=== PATIENT | male | born 1945 | race Caucasian/White ===

== ENCOUNTER 2017-12-20 16:40 | Emergency (ER) | payer OTHER ==
[~2017-12-20] VITALS: Ht 182.9 cm; Wt 134.3 kg
[~2017-12-20 16:40] MED LIST: ARTIFICIAL TEAR15 M1 OPHTHALMIC; ASPIRIN81 M2 PO; BACTRIM DS TAB1 EACH PO; BUMETANIDE 1 MG1 M1 PO; BUMEX2 MG PO; CARRAKLENZ DER473 ML TOP; CARVEDILOL12.5 MG PO; CARVEDILOL6.25 MG PO; COLACE100 MG PO; COUMADIN 5 MG TA5 M1 PO; EXPECTORANT200 M1 PO; FISH OIL 1,001000 M2 PO; FLONASE 0.05%50 MCG NASAL; FLUNISOLIDE NASAL; GLUCOPHAGE1000 MG PO; JANTOVEN7.5 MG PO; KETOCONAZOLE60 GM TOP; LASIX 40 MG TAB40 M1 PO; LEVEMIR SUBQ; LISINOPRIL5 MG PO; METFORMIN HCL500 MG PO; MIRALAX255 GM PO; NA; NAPROSYN250 MG PO; NITROGLYCERIN0.4 MG SUBLING; NOVOLOG100 UNIT/1 SUBQ; PLAVIX 75 MG TA75 M1 PO; POTASSIUM20 PO; PRAVACHOL40 MG PO; PRED FORTE 1% EY5 M1 OPHTHALMIC; RANOLAZINE PO; SALSALATE 750750 MG PO; TRAMADOL 50 MG50 MG PO; VALIUM2 MG PO; VOLTAREN 0.1% EY5 M1 OPHTHALMIC; XARELTO10 MG; XARELTO20 MG PO
[2017-12-20 18:13] LABS: HEMATOCRIT 40.6 % (42.0-52.0); HEMOGLOBIN 14.1 gm/dL (14.0-18.0); MCH 29.5 pg (26.0-34.0); MCHC 34.6 g/dL (28.0-37.0); MCV 85.2 fL (80.0-100.0); RBC 4.77 mil/uL (4.50-6.00); RDW 16.5 % (10.5-14.5); WBC 9.7 thou/uL (4.0-11.0)
[2017-12-20 18:20] LABS: CALCIUM 9.3 mg/dL (8.5-10.1); POTASSIUM 3.4 mmol/L (3.5-5.1)
== END 2017-12-20 19:42 | disposition home or self-care (01) ==
LOC: ER 16:40
PROVIDERS: Emergency Medicine
DX: K60.3 Anal fistula (principal); E11.9 Type 2 diabetes mellitus without complications; E78.5 Hyperlipidemia, unspecified; I50.9 Heart failure, unspecified; I48.91 Unspecified atrial fibrillation; Z95.5 Presence of coronary angioplasty implant and graft; Z79.4 Long term (current) use of insulin; Z88.0 Allergy status to penicillin

== ENCOUNTER 2020-10-16 09:35 | Inpatient (IN) | payer OTHER ==
[~2020-10-16] VITALS: Ht 182.9 cm; Wt 113.5 kg
[2020-10-16 09:39] VITALS: BP 94/51
--- NOTE | 2020-10-16 09:57 | NUR ---
REVIEWED TRIAGE NOTE. PT STATE HE IS NOT HAVING DIARRHEA. WHEN ASKED WHAT BROUGHT PT TO THE ED TODAY PT STATES "I AM HERE BECAUSE I CANNOT SLEEP" PT ASKED IF HE IS HAVING DIARRHEA PT STATES "NO I WISH I WAS" PT ASKED WHY HE CANNOT SLEEP PT STATES "I AM UP MULTIPLE TIMES A NIGHT GOING TO THE BATHROOM" PT YET AGAIN DENIES DIARRHEA. PT THEN STATES "I THINK I TORE MY ANUS" THIS RN ASKED WHY AND IF HE WAS HAVING BLEEDING FROM HIS RECTUM. PT STATES "NO I AM NOT AND LIGIA BECAUSE IT HURTS"
[2020-10-16 10:23] LABS: ABSOLUTE NEUTROPHILS 6.2 thou/uL (1.4-8.2); BASOPHILS 0.8 % (0.0-2.0); EOSINOPHILS 0.5 % (0.0-3.0); HEMOGLOBIN 14.8 gm/dL (14.0-18.0); LYMPHOCYTES 21.2 % (24.0-44.0); MCH 29.2 pg (26.0-34.0); MCHC 33.6 g/dL (28.0-37.0); MCV 86.9 fL (80.0-100.0); MONOCYTES 8.3 % (1.0-8.0); PLATELET COUNT 183 thou/uL (150-400); POLYS 69.2 % (36.0-66.0); RBC 5.06 mil/uL (4.50-6.00); RDW 16.7 % (10.5-14.5); WBC 8.9 thou/uL (4.0-11.0)
[2020-10-16 10:27] LABS: CALCIUM 9.5 mg/dL (8.5-10.1); CREATININE 1.1 mg/dL (0.7-1.3)
[2020-10-16 10:29] LABS: POTASSIUM 2.9 mmol/L (3.5-5.1)
[2020-10-16 10:40] LABS: ALBUMIN 3.5 g/dL (3.4-5.0); MAGNESIUM 2.1 mg/dL (1.8-2.4); TOTAL BILIRUBIN 2.9 mg/dL (0.2-1.0); TOTAL PROTEIN 8.1 g/dL (6.4-8.2)
--- NOTE | 2020-10-16 10:41 | NUR ---
PT NOTES HE HAS CHRONIC LOW POTASSIUM. PT STATES HE IS SUPPOSED TO BE TAKING ORAL LIQUID POTASSIUM BUT HE HAS NOT TAKEN IT IN SEVERAL DAYS
[2020-10-16 15:35] VITALS: BP 116/68
--- NOTE | 2020-10-16 15:42 | NUR ---
ATTEMPTED TO CALL REPORT AT THIS TIME. RN AT BEDSIDE WITH ANOTHER PT. RN TO CALL THIS RN BACK
[2020-10-16 15:48] LABS: URINE BILIRUBIN NEGATIVE (Negative); URINE BLOOD 2+ (Negative); URINE CLARITY CLOUDY; URINE COLOR YELLOW; URINE GLUCOSE-RANDOM* 3+ (Negative); URINE KETONES NEGATIVE (Negative); URINE NITRITE-REFLEX NEGATIVE (Negative); URINE PROTEIN (DIPSTICK) NEGATIVE (Negative); URINE UROBILINOGEN 0.2 E.U./dl (0.2-1.0)
[2020-10-16 15:51] LABS: URINE LEUKOCYTES-REFLEX 1+ (Negative)
[2020-10-16 16:00] LABS: AMORPHOUS URATES Few /LPF (None Seen); CASTS None Seen /LPF (None Seen); SQUAMOUS None Seen /LPF (0-3); URINE RBC 3-10 Few /HPF (NONE SEEN); URINE WBC-REFLEX >25 Many /HPF (0-5)
--- NOTE | 2020-10-16 16:10 | NUR ---
SECOND ATTEMPT FOR REPORT, RN UNABLE. TEXTILE SCREEN MAKER STATES SHE WILL LET RN KNOW THAT THIS IS THE ED'S SECOND ATTEMPT REPORT
[2020-10-16 16:15] VITALS: BP 116/68
--- NOTE | 2020-10-16 16:15 | NUR ---
PT WAS SENT TO THE FLOOR AT THIS TIME WITH [facility], ALL BELONGINGS AND MEDICATIONS SENT WITH PT. FULL HANDBAR PRINTED AND WITH PT
--- NOTE | 2020-10-16 16:26 | NUR ---
75-year-old male with history known for CAD status post cardiac stent/CABG, CHF, diabetes, hypertension, hyperlipidemia, history of A. fib.: Presents to the ED with complaint of reported diarrhea for the last 2 days. Patient reports more than 20 (soft/liquid and ) bowel movements over the last 24 hours. Per ED record ID Now as Negative and vaccinated with Moderna. The patient arrived via the ED with his children and in his wheelchair. ED notes that patient is A&O x4. Per GI patient has been admitted for Constipation with possible fecal obstruction and critically low potassium. Per Internal Medicine patient also has lactic acidosis with uncontrolled DM, hyponatremia, HTN, CHF, A-fib (On Xarelto) and listed as a full code. Son Shankar Cloud is listed as the next of kin at [phone] and yet when called was informed: "he no longer has this number". Alerted HS who was on the unit as patient was being admitted to note in admission assessment. Notably the ED reports the patient as A&O x4. As the MD plans of treatment and then therapy evaluations evolve, CM will continue to follow for any discharge needs.
[2020-10-16 19:19] VITALS: BP 107/58
[2020-10-16 19:20] VITALS: BP 107/58
[2020-10-16 23:34] VITALS: BP 110/70
[2020-10-17 03:33] LABS: ABSOLUTE NEUTROPHILS 5.1 thou/uL (1.4-8.2); BASOPHILS 0.8 % (0.0-2.0); HEMATOCRIT 38.1 % (42.0-52.0); LYMPHOCYTES 22.9 % (24.0-44.0); MCH 29.1 pg (26.0-34.0); MCHC 33.3 g/dL (28.0-37.0); MCV 87.5 fL (80.0-100.0); MONOCYTES 9.1 % (1.0-8.0); PLATELET COUNT 151 thou/uL (150-400); POLYS 66.2 % (36.0-66.0); RBC 4.35 mil/uL (4.50-6.00); WBC 7.7 thou/uL (4.0-11.0)
[2020-10-17 03:37] LABS: HEMOGLOBIN 12.7 gm/dL (14.0-18.0)
[2020-10-17 03:55] LABS: CALCIUM 8.7 mg/dL (8.5-10.1); CREATININE 0.9 mg/dL (0.7-1.3); MAGNESIUM 2.1 mg/dL (1.8-2.4); POTASSIUM 3.7 mmol/L (3.5-5.1)
[2020-10-17 03:57] VITALS: BP 106/72
[2020-10-17 07:26] VITALS: BP 106/68
--- NOTE | 2020-10-17 08:45 | NUR ---
Nursing lists no DPOA but the as next of kin Emilee Cloud at [phone] when called was given a number no longer in use. Also the assessment lists the correct phone number of the son Shankar Cloud at [phone] however when called to this number the caller stated that this too was a wrong number. Attempted to call the household of the patient's home number of [phone] and it too has a recording the number is unavailable. Assessment from nursing also states patient is up with moderate assist and his walker. Noted that on 10-17-20 PT/OT orders have been placed. CM to continue tor follow for discharge needs.
[2020-10-17 10:06] LABS: DIRECT BILIRUBIN 0.7 mg/dL (<0.1-0.2); TOTAL BILIRUBIN 1.6 mg/dL (0.2-1.0); TOTAL PROTEIN 6.4 g/dL (6.4-8.2)
[2020-10-17 12:59] VITALS: BP 93/60
--- NOTE | 2020-10-17 16:59 | NUR ---
met with patient who admits with hyperkalemia. Patient resides in independent apt alone. Ground floor apt. He has a scooter/walker. Walker in apt and scooter in community. He has [facility] in home. He uses bus transport for grocery shopping. Patient reports no hx of rehab stay. therapy evals in process. Gave patient skilled list to review. [facility] eval requested. Ariel Cloud [phone]. Case mgt following.
[2020-10-17 17:03] VITALS: BP 90/64
[2020-10-17 19:53] VITALS: BP 103/67
[2020-10-18 04:45] VITALS: BP 106/60
[2020-10-18 07:28] VITALS: BP 94/47
[2020-10-18 11:19] VITALS: BP 103/75
[2020-10-18] MEDS ORDERED: FLOMAX0.4 MG PO (12:34)
--- NOTE | 2020-10-18 14:21 | NUR ---
ON-GOING ASSESSMENT: CM REVIEWED CHART. PT WORKED WITH THERAPY TODAY AND RECOMMENDATION IS FOR ACUTE REHAB. [facility] CAN ACCEPT PATIENT. PT WAS STATING HE WANTED TO GO HOME BUT AFTER WORKING WITH THERAPY HE IS AGREEABLE TO GOING TO [facility]. CM NOTIFIED PATIENTS SON CARY WHO IS ALSO AGREEABLE WITH THE DISCHARGE PLAN. ANOTHER RAPID COVID TEST WILL NEED TO BE COMPLETED THE PREVIOUS COVID TEST IS OVER 48 HRS. CM NOTIFIED BEDSIDE RN. PLANS FOR DISCHARGE TO [facility] THIS AFTERNOON.
[2020-10-18 16:10] VITALS: BP 102/71
--- NOTE | 2020-10-18 16:27 | NUR ---
ASSESSMENT CHARTED - MEDS PER MAR - NO CO'S OF PAIN OR NASUEA. ROCAEL DIET AND FLUIDS. ACCUCHECKS CHARTED - COVERED BY SSI. PT UP TO THE CHAIR WITH PHYS THERAPY - THERAPY STATAING HE NEEDED TOO MUCH ASSISTANCE TO BE ABLE TO GO HOME SAFELY AND THE HE NEEDED TO GO TO REHAB - PT AGREED TO GO AFTER HE HAD STATED THAT HE WOULD NOT. XRAY OF ABDO COMPLETED. PT USING URINAL TO VOID - DOES MISS THE URINAL AT TIMES. LOWER LEGS DRY AND CRINKLY. PT TRANSFERED TO REHAB WITH [facility]. REPORT CALLED TO BRIE- TO REHAB VIA CHAIR. NO CO'S AT TIME OF D/C.
[2020-10-18 23:06] LABS: GLYCOHEMOGLOBIN (HGB A1C) 7.4 % (4.8-5.6)
== END 2020-10-18 16:30 | DRG 392 ==
LOC: ER 09:35 → EROBS 12:37 → 2N 12:37
PROVIDERS: Emergency Medicine; Nurse Practitioner; Nurse Practitioner Family; ADMIT Internal Medicine; ATTEND Internal Medicine
DX: K59.00 Constipation, unspecified (principal); E87.1 Hypo-osmolality and hyponatremia; E87.2 Acidosis; E87.6 Hypokalemia; I50.9 Heart failure, unspecified; Z20.822 Contact with and (suspected) exposure to COVID-19; E78.5 Hyperlipidemia, unspecified; E80.6 Other disorders of bilirubin metabolism; I48.91 Unspecified atrial fibrillation; I25.10 Atherosclerotic heart disease of native coronary artery without angina pectoris; I71.4 Abdominal aortic aneurysm, without rupture; Z60.2 Problems related to living alone; R53.81 Other malaise; E66.9 Obesity, unspecified; R33.9 Retention of urine, unspecified; E86.0 Dehydration; E11.65 Type 2 diabetes mellitus with hyperglycemia; I11.0 Hypertensive heart disease with heart failure; Z95.5 Presence of coronary angioplasty implant and graft; Z88.0 Allergy status to penicillin; Z95.1 Presence of aortocoronary bypass graft; Z87.891 Personal history of nicotine dependence; Z86.010 Personal history of colon polyps; Z98.49 Cataract extraction status, unspecified eye; Z68.33 Body mass index [BMI] 33.0-33.9, adult; Z79.82 Long term (current) use of aspirin; Z79.899 Other long term (current) drug therapy
CPT/HCPCS: 10081

== ENCOUNTER 2020-10-18 15:39 | Inpatient (IN) | payer OTHER ==
[~2020-10-18] VITALS: Ht 182.9 cm; Wt 122.1 kg
[~2020-10-18 15:39] MED LIST changes: +FLOMAX0.4 MG PO
--- NOTE | 2020-10-18 16:19 | NUR ---
Chart review; Cm visited with nasir. intro to cm and dcp. Honorio and DARRON. Noted he lives alone in apartment, has walker and scooter. manage own medication. Uses bus transportation to run errands. HCBS in past. Will cont following as needed for dc needs.
--- NOTE | 2020-10-18 17:46 | NUR ---
1715 ADMITTED TO ROOM 511. PATIENT IS ALERT AND ORIENTED X4. PATIENT BERG'S,BUSINESS TRAVEL CONSULTANT ARE EQUAL. LUNGS ARE DEMINISHED. ABD IS SOFT WITH BSX4. PATIENT USES URINAL. PATIENT IS UP IN CHAIR FOR DINNER. PATIENT HAS S.L. IN HIS RIGHT FORARM. +2 EDEMA IN HIS LOWER EXTREMITIES. BRUISE ON HIS LEFT AC AREA FROM IV STICK. FALL AND SAFETY PROTOCOLS IN PLACE. DENIES PAIN AT THIS TIME. PLAN PT/OT/[facility] IN A.M. WILL CONTINUE TO MONITER.
[2020-10-18 20:00] VITALS: BP 108/68
--- NOTE | 2020-10-19 05:13 | NUR ---
ASSUMED CARE OF PT AT 1930 ON 10/18/20. PT IS A&OX4. IS ON ROOM AIR. IS STABLE. DENIES PAIN. IS UP WITH MAX ASSIST OF 2-3 STAND PIVOT. FALL PRECAUTIONS & HOURLY ROUNDING CONTINUED THIS SHIFT. LABS & VTIALS REVIEWED. PT IS TURNED Q2H. HEELS OFFLOADED. VOIDS PER URINAL. CALL LIGHT WITHIN REACH. WILL CONTINUE TO MONITOR.
[2020-10-19 06:27] LABS: HEMATOCRIT 37.2 % (42.0-52.0); HEMOGLOBIN 12.5 gm/dL (14.0-18.0); MCH 29.1 pg (26.0-34.0); MCHC 33.5 g/dL (28.0-37.0); MCV 86.8 fL (80.0-100.0); RBC 4.29 mil/uL (4.50-6.00); RDW 16.8 % (10.5-14.5); WBC 8.2 thou/uL (4.0-11.0)
[2020-10-19 06:36] LABS: CREATININE 0.8 mg/dL (0.7-1.3); POTASSIUM 3.6 mmol/L (3.5-5.1)
[2020-10-19 06:57] LABS: FOLIC ACID 12.6 ng/mL (8.6-58.9)
[2020-10-19 08:00] VITALS: BP 104/59
[2020-10-19 21:00] VITALS: BP 97/67
[2020-10-19 23:06] LABS: GLYCOHEMOGLOBIN (HGB A1C) 7.5 % (4.8-5.6)
--- NOTE | 2020-10-20 02:43 | NUR ---
assumed care approx 1900 evening 10/19. pt lying in bed with head of bed elevated dozing off and on at change of shift. pt awoke to take hs meds. 02 sat 88-90% at hs and put on 02 2l per n/c. sat went up to 99%. back on room air. pt took meds with water tolerating well. pt voided per urinal. pt appears to be sleeping soundly. bed alarm on and call light in reach. will continue to monitor.
[2020-10-20 05:46] VITALS: BP 144/98
[2020-10-20 07:15] VITALS: BP 95/58
--- NOTE | 2020-10-20 15:28 | NUR ---
ASSUMED CARE AT 0700. PATIENT IS ALERT AND ORIENTED X4. PATIENT BERG'S, ASSEMBLER LIQUID CENTER ARE EQUAL. PATIENT HAS S.L. IN HIS RIGHT FORARM. PATIENT IS UP IN CHAIR FOR MEALS. LUNGS ARE CLEAR AND DEMINISHED. ABD IS SOFT WITH BSX4. PATIENT IS UP TO THE BSC TO HAVE BM. FALL AND SAFTY PROTOCOLS IN PLACE. C/O PAIN IN HIS KNEES. MEDICATED WITH PAIN GEL AND SCED PRN PAIN MEDS. CONTINUES TO PROGRESS SLOWLY TOWARDS D/C GOALS. WILL CONTINUE TO MONITER.
[2020-10-20 17:33] VITALS: BP 102/64
--- NOTE | 2020-10-21 00:53 | NUR ---
assumed care approx 0 evening 10/20. pt alert and oriented x4, appropriate and cooperative. pt up to bsc to have soft bm and voiding per urinal and urine spilled on floor from bsc. assisted pt with transfer. pt took hs meds with water tolerating well. pt c/o pain from buttocks and burning. pain med given, cream applied and encouraged pt to turn and take weight off bottom which pt refused to do. bed alarm on and call light in reach. will continue to monitor.
[2020-10-21 07:31] VITALS: BP 111/71
--- NOTE | 2020-10-21 14:19 | NUR ---
ASSUMED CARE OF PATIENT AT 0700. PT A&OX4. PT TOLERATING REGULAR DIET. PT WOKED WITH P.T. TODAY. PT. UP TO WC WITH MIN ASSIST. WILL CONTINUE TO MONITOR.
[2020-10-21 19:41] VITALS: BP 102/59
--- NOTE | 2020-10-22 05:11 | NUR ---
ASSUMED CARE AT 1900 OF 10/21. PATIENT IS A&OX4, REPORTS PAIN ON BOTTOM, SCHEDULED TYLENOL ADMINISTERED TO MANAGE PAIN. PATIENT IS ENCOURAGED TO TURN AND REPOSITION WHILE IN BED, PATIENT REFUSES TO BE REPOSITIONED. URINAL PLACED AT BEDSIDE, PATIENT IS ABLE TO USE IT INDEPENDENTLY. FALL PRECAUTIONS IN PLACE, CALL LIGHT W/IN REACH, WILL CONTINUE TO MONITOR.
[2020-10-22 07:15] VITALS: BP 89/61
--- NOTE | 2020-10-22 14:44 | NUR ---
ASSUMED CARE AT 0700. PATIENT IS ALERT AND ORIENTED X4. PATIENT BERG'S, TRAILER STEERER ARE EQUAL. LUNGS ARE CLEAR. OCASSIONAL SOA. CXR DONE R/T SOA. ABD IS SOFT WITH BSX4. PATIENT HAD BM TODAY. USES URINAL TO VOID NASEEM COLORED URINE. UP WITH ASSIST OF 1 STAFF AND GAIT BELT. UP TO THE BSC WITH ASSIST OF 1 STAFF. FALL AND SAFETY PROTOCOLS IN PLACE. C/O PAIN IN HIS KNEES. SCED ANTI-INFLAMATORY GEL APPLIED. SCED PAIN MED GIVEN. CONTINUES TO PROGRESS TOWARDS D/C GOALS. WILL CONTINUE TO MONITER.
[2020-10-22 19:25] VITALS: BP 96/69
--- NOTE | 2020-10-23 05:18 | NUR ---
ASSUMED CARE AT 1900 OF 10/22. A&OX4. VSS, EXCEPT FOR LOWER BP. PATIENT DENIES S/S OF HYPOTENSION, BUT REPORTS SHORTNESS OF BREATH. O2 Sat ON RA WAS 94%, PATIENT REQUESTED TO HAVE 02 PLACED ON TO PROVIDE COMFORT. 0.5L OF 02 VIA NC PLACED ON AND PATIENT REPORTS FEELING BETTER, 02Sat AT 97%. CHEST X-RAY RESULT SHOWED SIGNS OF PLEURAL EFFUSION, SO LETTERSET PRESS SET UP OPERATOR PROVIDER NOTIFED AND ONE TIME ORDER OF ORAL FUROSEMIDE RECEIVED AND ADMINISTERED. PATIENT HAS BEEN DIURESING THROUGHOUT THE NIGHT. BLE EDEMA IS ALSO PRESENT, BLE ELEVATED IN BED. PATIENT IS ENCOURAGED TO REPOSITION AT NIGHT, BUT CLAIMS HE SLEEPS BETTER IN FOWLERS POSITION BECAUSE HE CAN BREATH BETTER. URINAL AT BEDSIDE. CALL LIGHT W/IN REACH. WILL CONTINUE TO MONITOR.
[2020-10-23 07:15] VITALS: BP 90/56
[2020-10-23 10:30] VITALS: BP 90/56
--- NOTE | 2020-10-23 13:19 | NUR ---
Team meeting, recommendation: pain in knees and back. mod cognitive and memory. needs assist with medication. Dc 11/02 hh ( pt, ot ,st, nursing, sw) See if can start up his hcbs again that he had in the past. possible will need fww.
--- NOTE | 2020-10-23 17:18 | NUR ---
ASSUMED CARE OF PT AT 0700. WILL CONTNIUE TO MONITOR
[2020-10-23 19:45] VITALS: BP 115/75
--- NOTE | 2020-10-24 03:41 | NUR ---
ASSUMED CARE AT 1900 OF 10/23. PATIENT IS A&OX4, REPORTS PAIN IN BILATERAL KNEES, MANAGED WITH SCHEDULED ORAL AND TOPICAL MEDICATON. +3 BLE EDEMA IS PRESENT, LOWER EXTREMITIES ELEVATED WHILE IN BED. MAKAYLA HOSES ON DURING THE DAY, REMOVED FOR THE NIGHT. PATIENT BG WAS ELEVATED AT HS, BOTH INSULIN GLARGINE AND LISPRO ADMINISTERED, PATIENT ALSO HAD A SNACK BEFORE SLEEPING. PATIENT TOLERATED ORAL MEDICATIONS CRUSHED IN APPLE SAUCE. MINIMAL ASSIT OF 1 USING GB AND WALKER FOR TRANSFERS AND AMBULATION TO THE TOILET TO HAVE A BM. URINAL PLACED AT BED-SIDE. CALL LIGHT W/IN REACH, WILL CONTINUE TO MONITOR.
[2020-10-24 06:20] LABS: ABSOLUTE NEUTROPHILS 3.5 thou/uL (1.4-8.2); BASOPHILS 0.8 % (0.0-2.0); EOSINOPHILS 2.5 % (0.0-3.0); HEMATOCRIT 35.4 % (42.0-52.0); HEMOGLOBIN 11.8 gm/dL (14.0-18.0); LYMPHOCYTES 32.4 % (24.0-44.0); MCH 29.2 pg (26.0-34.0); MCHC 33.4 g/dL (28.0-37.0); MCV 87.3 fL (80.0-100.0); MONOCYTES 8.4 % (1.0-8.0); PLATELET COUNT 154 thou/uL (150-400); POLYS 55.9 % (36.0-66.0); RBC 4.05 mil/uL (4.50-6.00); WBC 6.4 thou/uL (4.0-11.0)
[2020-10-24 06:38] LABS: CALCIUM 8.4 mg/dL (8.5-10.1); CREATININE 0.8 mg/dL (0.7-1.3); MAGNESIUM 2.1 mg/dL (1.8-2.4); POTASSIUM 3.8 mmol/L (3.5-5.1)
[2020-10-24 08:11] VITALS: BP 90/61
--- NOTE | 2020-10-24 11:16 | NUR ---
[facility] called and [facility] are at capacity and cant take for hh needs. cm visited with stephanie at bedside, cm cont to wear face mask and shield during visit. Discussed hh, ok for referral to be sent to [facility].
--- NOTE | 2020-10-24 12:48 | NUR ---
ASSUMED CARE AT 0700. PATIENT IS ALERT AND ORIENTED X4. PATIENT BERG'S,CMO ARE EQUAL. LUNGS ARE DEMINISHED. PLAN VIDEO SWALLWO AT 1300. PATIENT IS UP WITH ASSIST OF 1-2 STAFF AND GAIT BELT. PATIENT UP TO THE BSC TO VOID NASEEM COLORED URINE. PATIENT HAS ABRASION TO HIS RIGHT YOUSSEF, SCAAB IRRITATED BY MAKAYLA HOSE. SALES DATA ANALYST STATED NO DRESSING , LEAVE OPEN TO AIR AND MONITER. FALL AND SAFETY PROTOCOLS IN PLACE. C/O BILATERAL KNEE PAIN. MEDICATED WITH SCED PAIN MED AND PAIN GEL. CONTINUES TO PROGRESS TOWARDS D/C GOALS. WILL CONTINUE TO MONITER.
--- NOTE | 2020-10-24 15:40 | HC ---
[facility] [place] [address] CONSULTATION Name: SHARON SCOTT Room #: 511-P ADM IN M.R.#: [id number] Admission: 10/18/20 Attend Phys: Brennen Mccurdy MD Discharge: Date of : 41 Report #: [id number] THIS REPORT FOR: cc: BUDDY Lopez family physician/PCP BUDDY Lopez family physician/PCP Mo Heller PhD ~ DATE OF SERVICE: 10/21/2020 NEUROBEHAVIORAL STATUS EXAMINATION DATE OF CONSULTATION: 10/21/2020 ATTENDING PHYSICIAN: Brennen Mccurdy M.D. TRIALS MANAGER: Mo Heller, PhD. CLINICAL PRESENTATION: The patient is a 75-year-old male initially admitted to the hospital on 10/16/2020 with diarrhea. He carries a medical problem list that includes an anal fistula, dehydration, diarrhea, dyspnea, elevated bilirubin, elevated lactic acid, epistaxis, hypokalemia and hypotension. 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 A complete description of his medical condition and history along with medications can be found in his medical record. Neuropsychological consultation was requested to provide assistance in the assessment of cognitive and emotional status and provide recommendations and services. Prior to this most recent admission, the patient was living in an independent apartment. He reports having been independent with basic and instrumental activities of daily living, except for driving. He has one child in the [place] area. 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 He reports being , but not living with his . TECHNIQUES UTILIZED: Clinical interview, review of medical records, staff consultation and behavioral observation, mini mental status exam 2 standard version, clock drawing and brief verbal fluency assessment. EXAMINATION AND FINDINGS: The patient is alert and cooperative with the assessment. He was uncertain of the reason for his hospitalization, although reports having bowel issues. There was no report auditory or visual hallucinations, thought disorder or aphasia. He describes his symptoms to [facility] [address] [place] [address] CONSULTATION Name: SHARON SCOTT Room #: 511-P [facility] IN ..#: [id number] Admission: 10/18/20 Attend Phys: Brennen Mccurdy MD Discharge: Date of : 41 Report #: [id number] include sleep disorder, reduced appetite, irritability, decreased patience and problems with memory. He does not report a history of alcohol or cannabis abuse prior to his admission. Driving was discontinued in 2016. Performance on the MMSE 2 brief version is within normal limits with a raw score of 15 and 16. He is alert and oriented with only missing 1/3 for immediate recall. Performance on the MMSE 2 standard version is within normal limits with a raw score of 28 of 30. The patient was able to copy a simple geometric design. Clock drawing was within normal limits. Brief letter fluency was in the low average range with a raw score of 13 and a T-score of 40. Letter fluency was extremely low with a raw score of 4. The patient is presenting with deficits in verbal fluency suggesting deficits in thought organization and conceptual reasoning. He is alert and oriented. DIAGNOSTIC IMPRESSION: Mild neurocognitive disorder, unspecified, without behavior disorder. Unspecified anxiety disorder RECOMMENDATIONS: The patient may require increased supervision upon return home to maintain safety. Assistance in the management of medication and finances as well as nutrition. The use of relaxation techniques during his therapies to reduce anxiety. Thank you very much for allowing me to provide the consultation on this patient. <ELECTRONICALLY SIGNED> By: Mo Heller, PhD 10/24/20 1540 1730 [id number] Mo Heller, PhD /nt
[2020-10-24 19:30] VITALS: BP 94/59
[2020-10-24 21:00] VITALS: BP 117/72
--- NOTE | 2020-10-25 00:43 | NUR ---
PT ASSESSMENT COMPLETED AND VSS. MEDS GIVEN ORDERED AND WELL TOLERATED. BG 88 AND LANTUS INSULIN HELD PER ORDER FROM LEON WALTER. NPO AFTER MIDNIGHT. SPOT CHECK OF BG LEVEL 85 AT 0030 AM. PT SLEEPING ON AND OFF. PT DENIES NEEDS. WILL CONTINUE TO MONITOR FREQUENTLY.
[2020-10-25 06:16] LABS: HEMATOCRIT 36.2 % (42.0-52.0); HEMOGLOBIN 12.1 gm/dL (14.0-18.0); MCH 29.2 pg (26.0-34.0); MCHC 33.5 g/dL (28.0-37.0); MCV 87.2 fL (80.0-100.0); RBC 4.16 mil/uL (4.50-6.00); RDW 16.9 % (10.5-14.5); WBC 6.1 thou/uL (4.0-11.0)
[2020-10-25 06:44] LABS: ALBUMIN 2.6 g/dL (3.4-5.0); CALCIUM 8.5 mg/dL (8.5-10.1); CREATININE 0.8 mg/dL (0.7-1.3); POTASSIUM 3.5 mmol/L (3.5-5.1); TOTAL BILIRUBIN 1.2 mg/dL (0.2-1.0); TOTAL PROTEIN 6.5 g/dL (6.4-8.2)
[2020-10-25 08:00] VITALS: BP 114/59
--- NOTE | 2020-10-25 10:08 | NUR ---
ASSUMED CARE OF PT AT 0700 THIS MORNING. PT IS A/OX4, SKIN INTACT WITH REDNESS TO BUTTOCKS, BARRIER CREAM APPLIED. LUNG ARE CLEAR BILAT WITH DIMINISHED LOWER SALINAS. ASSESSMENT CHARTED AND OTHERWISE UNREMARKABLE. CALL LIGHT AND OTHER NEEDS ARE IN REACH. PT IS TO HAVE AN EGD LATER IN THE DAY FOR SWALLOWING ISSUES. PT IS TO REMAIN NPO UNTIL AFTER PROCEDURE. MEDS WITHELD DUE TO STRICT NPO. TX GIVEN NEEDED AND SCHEDULES. WILL RESUME MEDS AFTER EVAL. WILL CONTINUE MONITORING AND NOTE ANY CHANGES. PHYS THPY, OT AND SPEECH WORKING WITH PT.
[2020-10-25 19:18] VITALS: BP 103/65
--- NOTE | 2020-10-25 23:57 | NUR ---
PT ASSESSMENT COMPLETED AND VSS. MEDS GIVEN ORDERED AND WELL TOLERATED. FALL PRECAUTIONS IN PLACE. PT WIDE AWAKE AND CONCERNED ABOUT NOT SLEEPING. SLEEP MEDICATION HELPFUL. ASST WITH REPOSITION FOR COMFORT. EYE DROPS GIVEN. PT SLEEPING WELL. SWALLOW PRECAUTIONS FOLLOWED. MEDS CRUSHED IN HONEY THICK LIQUIDS. WILL CONTINUE TO MONITOR FREQUENTLY.
[2020-10-26 08:00] VITALS: BP 92/69
--- NOTE | 2020-10-26 08:58 | NUR ---
PT SITTING UP IN CHAIR. PT STATED HE HAS PAIN TO KNEES OF 10 ON 1-10 SCALE. PT LUNGS CLEAR ON RT, CRACKLES TO LLL. PT DOES HAVE DRY COUGH AT TIMES. PT TOOK MEDS CRUSHED IN HONEY THICKENED LIQUIDS. PT DID FINISHE BREAKFAST THIS AM. NO COMPLAINTS OF PAIN WITH SWALLOWING. PT UP WITH WALKER AND GAIT BELT, FOLLOWING WITH W/C WHEN IN DURAN. PT HAS LOWER EXT WRAPPED AT THIS TIME. PT REFUSED STOOL SOFTNERS AND ALSO FISH OIL THIS AM.
--- NOTE | 2020-10-26 11:25 | NUR ---
Nutrition: pt admitted with medical complexity, general debility. Seen for early LOS. Pt eating well, 100% most meals. Does have dysphagia, ST following and requires pureed honey thick liquids. Noted renal restriction-does not need, will liberalize to 2 gm Na. PMH: CABG, DM, HLD, CHF, stents, Chrons, colitis. BG controlled, no need for carb controlled diet at this time. S/P EGD with dilation today. Diarrhea prior admit, then constipation, now resolved. On bowel regimen. Also folic acid, B12, insulin. Consider low nutrition risk
--- NOTE | 2020-10-26 13:50 | NUR ---
Cont discharge planning as needed.
--- NOTE | 2020-10-26 19:09 | NUR ---
PT DID WELL WITH EATING 1/2 OF DINNER TONIGHT.
[2020-10-26 19:30] VITALS: BP 94/63
--- NOTE | 2020-10-27 00:03 | NUR ---
PT ALERT AND ORIENTED X 4. PT TOOK HS MEDS CRUSHED IN HONEY THICK LIQUIDS WITHOUT DIFFICULTY. BLOOD SUGAR 191 AT HS. INSULIN GIVEN ORDERED. WRAPS INTACT TO BILAT LE'S. PT DENIES PAIN OR DISCOMFORT. BED ALARM ON FOR SAFETY. PT APPEARS TO BE SLEEPING ON HOURLY ROUNDS.
[2020-10-27 08:00] VITALS: BP 110/68
--- NOTE | 2020-10-27 08:32 | NUR ---
PT SITTING ON SIDE OF BED THIS AM AND STATED HE DIDN'T GET ANY SLEEP LAST NIGHT DUE TO NOT BEING ABLE TO GET COMFORTABLE IN THE BED. PT COMPLAINED OF PAIN TO KNEES OF 10. PT DIDN'T SAY PAIN KEPT HIM UP. PT TOOK MEDS WITH HONEY THICK WATER. PT REFUSED APPLE JUICE AND THICKENED TEA. PT STATED HE DOESN'T DRINK MUCH WATER HE DID AND HIS URINE OUTPUT IS LESS, URINE IS TEA COLOR. MENTIONED TO PT THAT WE HAVE THICKENED POWDER TO ADD TO WATER FOR MORE INTAKE. PT HAS MAKAYLA HOSE ON LE. PT ON ROOM AIR. PT STATED HE WANTED TO HAVE A BM AND REQUEST STOOL SOFTENER.
--- NOTE | 2020-10-27 08:52 | NUR ---
ADM COLACE 100MG PO FOR CONSTIPATION. PT TOOK MED WITH THICKENED WATER WITHOUT ANY ISSUES. PT EATING 50% OF MEALS AT A TIME WITH AN HOUR WAIT TO FINISH REST OF MEAL.
[2020-10-27 19:30] VITALS: BP 121/84
--- NOTE | 2020-10-28 00:21 | NUR ---
PT ALERT AND ORIENTED X 4. UP IN CHAIR MUCH OF EVENING. TRANSFERRED TO BED AT HS WITH ASSIST X 1. PT TOOK HS MEDS CRUSHED IN NECTAR THICK WATER WITHOUT DIFFICULTY. BLOOD SUGAR 98 AT HS. LANTUS INSULIN HELD PER ORDER FROM IGOR WALTER NP. PT DENIES PAIN OR DISCOMFORT. BED ALARM ON FOR SAFETY. PT APPEARS TO BE SLEEPING ON HOURLY ROUNDS.
[2020-10-28 07:15] VITALS: BP 91/55
--- NOTE | 2020-10-28 15:45 | NUR ---
PT ABLE TO TRANSFER FROM WC TO BED WITH MOD ASSIST OF 1 WITH GB AND WALKER. NOTED THAT THERE WAS A SMALL SMEAR OF BLOOD ON THE TOILET RISER, AND PT HAS A SMALL OPEN WOUND AT THE RT INNER POSTERIOR THIGH. AREA WAS CLEANSED AND Z-GUARD APPLIED. PT STATED, "THAT COMMODE SEAT PINCHES YOU." COMMODE SEAT WAS REMOVED FROM HIS BATHROOM AND A NEW BARIATRIC RISER WAS PLACED OVER THE TOILET.
[2020-10-28 19:35] VITALS: BP 92/56
--- NOTE | 2020-10-28 22:04 | NUR ---
PT ASSESSMENT COMPLETED AND VSS. MEDS GIVEN ORDERED AND WELL TOLERATED. TYLENOL AND VOLTAREN GEL FOR KNEE PAIN. LYMPH EDEMA WRAPS IN PLACE. SLEEPING MEDICATION WORKING WELL. URINE DARK YELLOW. ENC HONEY THICK LIQUIDS WITH ASSTANCE. PT SLEEPING WELL WITH HEAD ELEVATED. WILL CONTINUE TO MONITOR FREQUENTLY. SSI GIVEN HS.
[2020-10-29 05:49] LABS: ABSOLUTE NEUTROPHILS 3.1 thou/uL (1.4-8.2); BASOPHILS 0.6 % (0.0-2.0); EOSINOPHILS 2.4 % (0.0-3.0); HEMATOCRIT 36.5 % (42.0-52.0); HEMOGLOBIN 12.1 gm/dL (14.0-18.0); LYMPHOCYTES 34.6 % (24.0-44.0); MCH 29.1 pg (26.0-34.0); MCHC 33.2 g/dL (28.0-37.0); MCV 87.6 fL (80.0-100.0); MONOCYTES 6.4 % (1.0-8.0); PLATELET COUNT 144 thou/uL (150-400); RBC 4.16 mil/uL (4.50-6.00); RDW 17.2 % (10.5-14.5); WBC 5.5 thou/uL (4.0-11.0)
[2020-10-29 05:52] LABS: CALCIUM 8.9 mg/dL (8.5-10.1); CREATININE 0.8 mg/dL (0.7-1.3); MAGNESIUM 1.8 mg/dL (1.8-2.4); POTASSIUM 3.3 mmol/L (3.5-5.1)
[2020-10-29 08:00] VITALS: BP 98/61
--- NOTE | 2020-10-29 09:00 | NUR ---
PT LUNGS CLEAR THIS AM. PT SITTING UP ON SIDE OF BED TO TAKE MEDS. PT TOLERATING MEDS CRUSHED AND IN HONEY THICKEN LIQUIDS. PT USING URINAL TO VOID, PT HAS DARK TEA COLOR URINE. PT LOWER LEGS ARE WRAPPED. PT LBM [id number]. PT UP VIA WALKER AND OR W/C. PT ON ROOM AIR.
--- NOTE | 2020-10-29 15:04 | PLAN ---
[facility] [place] [address] REHAB UNIT PLAN OF CARE Name: SHARON SCOTT Room #: 511-P ADM IN M.R.#: [id number] Admission: 10/18/20 Attend Phys: Brennen Mccurdy MD Discharge: Date of : 41 Report #: [id number] THIS REPORT FOR: cc: FAM - No family physician/PCP FAM - No family physician/PCP Brennen Mccurdy MD ~ DATE OF SERVICE: 10/21/2020 PROGRESS NOTE AND OVERALL PLAN OF CARE HISTORY OF PRESENT ILLNESS: The patient was seen back earlier in followup. He was in no distress. His temperature recorded yesterday was 36.6, pulse 79, respirations 18, blood pressure 102/64. He was pleasant, oriented, cooperative. No distress. No focal calf swelling. He does have some lower extremity edema and is being monitored for this by the hospitalist service. We are utilizing some Voltaren gel for knee discomfort, which has been a chronic premorbid issue. He does have premorbid peripheral neuropathy that has been noted with decreased distal sensation and some hypersensitivity to his feet. Functionally, he has been working in therapies. On 10/20/2020, he was transferring with mod assist, bed to wheelchair and ambulated 8 feet in the parallel bars with mod assist. In occupational therapy, lower body dressing was moderate assistance on 10/20/2020 with dressing set up. He also has speech therapy involved and has moderate cognitive deficits with moderate memory deficits. ASSESSMENT: 1. Medical complexity with generalized debilitation. 2. Constipation with obstipation. 3. Hypokalemia, resolved. 4. Elevated total bilirubin, trending down. 5. Suspected degenerative arthritis of the knees. 6. Premorbid peripheral neuropathy. 7. Lower extremity edema, intermittent Lasix as needed. 8. Diabetes mellitus type 2, elevated hemoglobin A1c. 9. Atrial fibrillation, on chronic anticoagulation. 10. Coronary artery disease with history of coronary artery bypass grafting. 11. Abdominal aortic aneurysm. PLAN: The overall plan of care is based on the pre-admit screen and information garnered from therapy assessments. 1. Estimated length of stay is probably 10-14 days. 2. Medical prognosis is reasonably good. 3. Anticipated interventions includes the interdisciplinary acute inpatient rehabilitation program. 4. Anticipated functional outcomes would be for [place] [address] REHAB UNIT PLAN OF CARE Name: SHARON SCOTT Lilian Room #: 511-P [facility]#: [id number] Admission: 10/18/20 Attend Phys: Brennen Mccurdy MD Discharge: Date of : 41 Report #: [id number] independent with transfers, mobility and ADLs and to improve as far as cognition, so he can return back to the home setting. 5. Discharge destination would be back to the home setting. He does live in an apartment alone, has some support of assistance. Utilized a 4-wheeled walker or electric scooter premorbidly for longer distances. 6. Expected therapy by discipline includes PT, OT and speech 1 hour per day each 5 days a week throughout the duration of the acute inpatient rehabilitation stay. ADDENDUM: The patient's prognosis for significant practical improvement within a reasonable period of time appears good. Given the patient's complex medical condition and risk of further medical complication, rehabilitation services could not be safely provided at the lower level of care such as a [facility] facility. <ELECTRONICALLY SIGNED> By: Brennen Mccurdy MD 10/29/20 1504 [id number] [id number] Brennen Mccurdy MD /nt
--- NOTE | 2020-10-29 17:06 | PATH ---
[facility] [address] [place] [address] PATHOLOGY RPT PROCEDURE Name: ZAKIYA CLOUDPEPE Quintana Room #: 511-P ADM IN M.R.#: [id number] Admission: 10/18/20 Date of : 41 Discharge: Report #: [id number] Path Case #: [id number] LCA Accession Number: [id number] . 01 Material submitted: . gastrointestinal site - GASTRIC BX R/O H. PYLORI . 01 Clinical history: . DYSPHAGIA GASTRITIS DUODENITIS . 02 Diagnosis: Gastric mucosa, gastric to rule out H. pylori, endoscopic biopsy: - Mild chronic gastritis with features of reactive gastropathy. - One fragment with dilated fundic glands. - Negative for intestinal metaplasia or atrophy. - Negative for Helicobacter pylori (properly controlled immunohistochemical stain performed). (IUV:mercedes; 10/29/2020) MBR 10/29/2020 1055 Local . 02 Electronically signed: . Abby Christina MD, Pathologist NPI- [id number] . 01 Gross description: . The specimen is received in formalin, labeled "[place], gastric BX". Received are 3 segments of pale bowden tissue ranging in size from 0.3 to 0.6 cm in maximum dimensions. The specimen is submitted entirely in cassette A1.([facility]; 10/26/2020) [facility] 10/26/2020 1350 Local . 02 Pathologist provided ICD-10: K29.50 . 02 CPT . 896714, F20221 Specimen Comment: A courtesy copy of this report has been sent to [phone] Specimen Comment: [phone] Specimen Comment: Report sent to / DR DOZIER Performed at: [address] [id number] MD Reynaldo Ray MD Phone: [phone] Performed at: [address] [address] PATHOLOGY RPT PROCEDURE Name: SANDOVAL CLOUD N Room #: 511-P ADM IN M.R.#: [id number] Admission: 10/18/20 Date of : 41 Discharge: Report #: [id number] Path Case #: [id number] [address] [id number] MD Abby Christina MD Phone: [phone]
[2020-10-29 19:41] VITALS: BP 95/56
--- NOTE | 2020-10-30 01:29 | NUR ---
PT ASSESSMENT COMPLETED AND VSS. MEDS GIVEN ORDERED AND WELL TOLERATED. FALL PRECAUTIONS IN PLACE. UP IN CHAIR EARLY DURING SHIFT. BARRIER CREAM APPLIED TO [place]TOCK AREA. ASST WITH REPOSITION FOR COMFORT. ENCOURAGED HONEY THICK LIQUIDS. SLEEP MEDICATION HELPFUL. SLEEPING WELL AT THIS TIME. WILL CONTINUE TO MONITOR FREQUENTLY.
--- NOTE | 2020-10-30 08:23 | NUR ---
PT SITTING UP IN CHAIR THIS AM. PT COMPLAINED ABOUT HIS EDEMA TO PEDAL. PT HAD LE WRAPPED IN FABI BANDAGE YESTERDAY VIA LYMPHEDEMA WRAPS. PT DOES SIT UP IN THE CHAIR MOST OF THE DAY. PT DENIES ANY PAIN. PT TOLERATING HALF HIS BREAKFAST AND HONEY THICK LIQUIDS WITHOUT ANY PAIN OR DYSPEPSIA. PT LUNGS CLEAR AND ON ROOM AIR. PT STILL TAKING MEDS CRUSHED IN THICKEN LIQUIDS. PT URINE IS TEA COLOR AND CONCENTRATED. ENCOURAGE FLUID INTAKE.
[2020-10-30 10:00] VITALS: BP 90/57
--- NOTE | 2020-10-30 11:28 | NUR ---
ADM METOLAZONE PO X1.
[2020-10-30 12:56] LABS: HEMATOCRIT 37.9 % (42.0-52.0); HEMOGLOBIN 12.3 gm/dL (14.0-18.0); MCH 28.9 pg (26.0-34.0); MCHC 32.5 g/dL (28.0-37.0); MCV 88.8 fL (80.0-100.0); RBC 4.27 mil/uL (4.50-6.00); RDW 17.5 % (10.5-14.5); WBC 6.7 thou/uL (4.0-11.0)
--- NOTE | 2020-10-30 13:23 | NUR ---
Team meeting, recommendation, going to have echo, ekg, labs - bnp r/t increased lower ext. swelling. lymphedema wraps. puree diet with honey thick liquids. Speech working with him on education on thicken liquids at home and puree diet. provide life alert information. needs assist with pills and bills. dc 11/02 Pradeep peacock ( pt, ot, st, nursing and sw). Fww. Need to see if [facility] can assist in home. has fluxer mwf for couple hours.
[2020-10-30 13:27] LABS: ALBUMIN 2.9 g/dL (3.4-5.0); ANION GAP 5 mmol/L (7-16); BUN 14 mg/dL (7-18); CALCIUM 8.9 mg/dL (8.5-10.1); CHLORIDE 102 mmol/L (98-107); CHOLESTEROL 99 mg/dL (<200); CO2 34 mmol/L (21-32); CREATININE 0.8 mg/dL (0.7-1.3); GLUCOSE 146 mg/dL (74-106); HDL CHOLESTEROL 32 mg/dL (>40); LDL CHOLESTEROL 54 mg/dL (<100); POTASSIUM 3.5 mmol/L (3.5-5.1); SGOT 15 U/L (15-37); SGPT 16 U/L (30-65); SODIUM 141 mmol/L (136-145); TC:HDL 3.1 Ratio (Not establshd); TOTAL PROTEIN 6.8 g/dL (6.4-8.2); TRIGLYCERIDE 65 mg/dL (<150); VLDL 13 mg/dL (<40)
--- NOTE | 2020-10-30 14:45 | NUR ---
I have reviewed the documentation by Franny Springer from 10/30/20 to 10/30/20 and I concur with it. LINNEA ALMEIDA
--- NOTE | 2020-10-30 15:37 | 2DMMODE ---
[facility] [address] [address] 2 D/M-MODE ECHOCARDIOGRAM Name: SHARON SCOTT Room #: 511-P ADM IN M.R.#: [id number] Admission: 10/18/20 Attend Phys: Brennen Mccurdy MD Discharge: Date of : 41 Report #: [id number] THIS REPORT FOR: cc: FAM - No family physician/PCP FAM - No family physician/PCP Amrit Newman MD ~ APPROVED REPORT Study performed: 10/30/2020 13:07:03 EXAM: Comprehensive 2D, Doppler, and color-flow Echocardiogram Patient Location: Bedside Room #: 511 Status: routine BSA: 2.42 HR: 63 bpm BP: 90/57 mmHg Rhythm: Afib Other Information Study Quality: Adequate Indications Leg edema. Hx: CAD, CABG, multiple PCI, CHF, Afib. 2D Dimensions RVDd: 48.00 mm IVSd: 10.00 (7-11mm) LVOT Diam: 21.00 (18-24mm) LVDd: 64.00 mm PWd: 10.00 (7-11mm) Ascending Ao: 29.01 (22-36mm) LVDs: 49.00 (25-40mm) Left Atrium: 50.14 (27-40mm) Aortic Root: 38.00 mm Volumes Left Atrial Volume (Systole) Single Plane 4CH: 105.26 mL Single Plane 2CH: 106.48 mL LA ESV Index: 45.00 mL/m2 Aortic Valve AoV Peak Pernell.: 1.33 m/s AO Peak Gr.: 8.44 mmHg LVOT Max P.14 mmHg LVOT Max V: 0.73 m/s [facility] [address] [place] [address] 2 D/M-MODE ECHOCARDIOGRAM Name: SHARON SCOTT Lilian Room #: 511-P [facility] IN [facility]#: [id number] Admission: 10/18/20 Attend Phys: Brennen Mccurdy, Discharge: Date of : 41 Report #: [id number] ARIEL Vmax: 1.93 cm2 Mitral Valve MV Decel. Time: 267.89 ms Pulmonary Valve PV Peak Pernell.: 0.83 m/s PV Peak Gr.: 2.77 mmHg Tricuspid Valve TR Peak Pernell.: 3.20 m/s RAP Estimate: 15.00 mmHg TR Peak Gr.: 41.00 mmHg PA Pressure: 56.00 mmHg Left Ventricle Left ventricle is moderately dilated. There is normal left ventricular wall thickness. Left ventricular systolic function is severely decreased. LVEF is 30%. This study is not technically sufficient to allow evaluation of the LV diastolic function due to atrial fibrillation. Right Ventricle Right ventricle is dilated. Right ventricle is hypokinetic. Atria Severe biatrial enlargement. Aortic Valve The aortic valve is normal in structure; mildly calcified. Mild aortic regurgitation. There is no aortic valvular stenosis. Mitral Valve The mitral valve is normal in structure. Severe mitral regurgitation. Tricuspid Valve The tricuspid valve is normal in structure. Moderate to severe tricuspid regurgitation. Estimated PAP is 55mmHg. Pulmonic Valve The pulmonary valve is normal in structure. Trace pulmonic regurgitation. Great Vessels The aortic root is normal in size. The ascending aorta is normal in size. IVC is dilated and collapses <50% with [facility] [address] [place] [address] 2 D/M-MODE ECHOCARDIOGRAM Name: SHARON SCOTT Room #: 511-P [facility] IN ..#: [id number] Admission: 10/18/20 Attend Phys: Brennen Mccurdy, Discharge: Date of : 41 Report #: [id number] inspiration. Pericardium There is no pericardial effusion. <Conclusion> Left ventricle is moderately dilated. Left ventricular systolic function is severely decreased. LVEF is 30%. Right ventricle is dilated. Right ventricle is hypokinetic. Severe biatrial enlargement. The aortic valve is normal in structure; mildly calcified. Mild aortic regurgitation. The mitral valve is normal in structure. Severe mitral regurgitation. The tricuspid valve is normal in structure. Moderate to severe tricuspid regurgitation. Estimated PAP is 55mmHg. The pulmonary valve is normal in structure. The aortic root is normal in size. There is no pericardial effusion. <ELECTRONICALLY SIGNED> By: Amrit Newman MD [id number] Amrit Newman MD /INF
--- NOTE | 2020-10-30 17:30 | NUR ---
PT VOIDED IN URINAL AND NOTICED COLOR WAS CLEAR YELLOW. VERY IMPRESSED WITH URINE COLOR DUE TO PT WAS HAVING TEA COLOR URINE. PT VOIDED 500ML.
[2020-10-30 19:26] VITALS: BP 77/43
--- NOTE | 2020-10-31 00:08 | NUR ---
PT ALERT AND ORIENTED X 4. UP IN RECLINER ALL EVENING. TRANSFERRED TO BED AT HS WITH ASSIST X 1. LE WRAPS INTACT. PT TOOK HS MEDS CRUSHED IN HONEY THICK LIQUIDS WITHOUT DIFFICULTY. PT C/O PAIN IN LEFT KNEE. TYLENOL GIVEN ORDERED. VERBALIZED PAIN RELIEF. BED ALARM ON FOR SAFETY. PT APPEARS TO BE SLEEPING ON HOURLY ROUNDS.
[2020-10-31 07:15] VITALS: BP 92/64
--- NOTE | 2020-10-31 08:30 | NUR ---
PT LEAVING FOR REPEAT VIDEO SWALLOW.
--- NOTE | 2020-10-31 09:00 | NUR ---
PT BACK FROM VIDEO SWALLOW, PT SEEMS FRUSTRATED. PT DIET HAS NOT CHANGED AND STILL ON HONEY THICKEN LIQUIDS. PT LUNGS CLERA. PT HAS LOWER EXT WRAPS. PT TOOK MEDS WITH HONEY THICKEN LIQUIDS. PT STATED PAIN TO KNEES IS AROUND 7. PT STATED HE DIDN'T SLEEP WELL LAST NIGHT.
--- NOTE | 2020-10-31 09:39 | NUR ---
Tried both of his contacts shweta and cecil. both numbers at not working and is wrong number for son cecil. PCP dr Ross at [place]. Will cont following as needed for dc needs.
--- NOTE | 2020-10-31 10:53 | P ---
[facility] [place] [address] PROCEDURE REPORT Name: SHARON SCOTT Room #: 511-P [facility] IN M.R.#: [id number] Admission: 10/18/20 Attend Phys: Brennen Mccurdy MD Discharge: Date of : 41 Report #: [id number] THIS REPORT FOR: cc: FAM - No family physician/PCP FAM - No family physician/PCP Mike Morris MD ~ cc: Eliza Leung APRN, Brennen Mccurdy MD DATE OF SERVICE: 10/25/2020 PROCEDURE PERFORMED: Upper endoscopy with biopsies and esophageal dilation. HISTORY OF PRESENT ILLNESS: The patient is a 75-year-old male with dysphagia, who underwent a video swallow on 10/24/2020, which showed aspiration and penetration of thin consistency despite chin tuck positioning, intermittent delayed coughing reflex is present, thicker consistencies did not demonstrate significant aspiration; however, material was administered via column within the esophagus, which refluxed in the esophagus back into the lower pharyngeal region. Poor emptying into the small bowel was noted. Plan is for EGD with possible dilation. DESCRIPTION OF PROCEDURE: The risks and benefits of the procedure were explained to the patient, those risks including but not limited to bleeding, perforation and the risk of sedation. He understood these risks and gave informed consent. Sedation was given using propofol per anesthesia. Next, using a standard Olympus upper endoscope, the scope was placed in the patient's mouth and advanced under direct vision through the esophagus, stomach and into the second portion of the duodenum. The larynx was normal in appearance. The upper esophagus was normal. In the upper to mid esophagus, the aorta was causing mild extrinsic compression; however, the scope passed through this area without difficulty. The distal esophagus was normal. The GE junction was normal. Overall, there was a mild gastritis noted in the gastric body and antrum. No evidence of ulcerations or erosions. No evidence of bleeding. Biopsies were obtained to rule out H. pylori. The pylorus was normal and patent. There was a moderate duodenitis in the duodenal bulb and first portion. The second portion of the duodenum was normal. No evidence of bleeding. The scope was then brought back up into the patient's stomach and a Savary guidewire was inserted through the scope, leaving the guidewire in place as the scope was then withdrawn. Next, a 51-Kiswahili Savary dilation of the esophagus was then performed without difficulty. The wire and dilator were removed. The scope was reintroduced into the patient's stomach. There was no evidence of mucosal tear after dilation. The scope was then withdrawn and the procedure terminated. The patient tolerated the procedure well. IMPRESSION: 1. 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 2. Gastritis with duodenitis. 3. Otherwise normal upper endoscopy. RECOMMENDATIONS: 1. Await biopsy results. 2. Continue PPI therapy. 3. Observe the patient post-dilation. 4. Continue current diet recommendations. Thank you for allowing me to participate in his care. <ELECTRONICALLY SIGNED> By: Mike Morris MD 10/31/20 1053 1217 2206 Mike Morris MD /nt
[2020-10-31 11:44] LABS: CALCIUM 8.5 mg/dL (8.5-10.1); CREATININE 0.9 mg/dL (0.7-1.3); POTASSIUM 3.1 mmol/L (3.5-5.1)
--- NOTE | 2020-10-31 19:00 | NUR ---
ASSUMED CARE AT 1330. PT UP TO THERAPY THIS AFTERNOON TO LEARN HOW TO PREPARE FOOD ACCORDING TO HIS DIET AFTER FAILING VIDEO STUDY. DR. NARANJO IN TO SEE PT AND WAS GIVEN AN UPDATE REGARDING BP, EDEMA MGMT, MED CHANGES, AND DC PLAN FOR THURSDAY. PT IS MANAGING THE ALTERED INTAKE SCHEDULE FOR MEALS, AND CALLS FOR RN TO REHEAT TRAY AFTER AN HOUR TO EAT THE SECOND HALF. REPORT GIVEN TO ONCOMING SHIFT AND PT CURRENTLY UP IN WC TALKING ON THE PHONE.
[2020-10-31 19:44] VITALS: BP 105/55
--- NOTE | 2020-11-01 02:14 | NUR ---
ASSUMED CARE AT 1900 OF 10/31. PATIENT IS A&0X4. DENIES SOB OR CHEST PAIN. SCHEDULED ORAL AND TOPICAL PAIN MEDICATION ADMINISTERED TO MANAGE PAIN IN LOWER EXTRREMITIES. BLE LYMPHEDEMA WRAPS INPLACE AND INTACT. PATIENT TOLERATED ORAL MEDICATION CRUSHED IN HONEY THICK LIQUIDS. PATIENT IS ABLE TO REPOSITION HIMSELF IN BED. URINAL PLACED AT BEDSIDE. FALL PRECAUTIONS IN PLACE, CALL LIGHT WITHIN REACH. WILL CONTINUE TO MONITOR.
[2020-11-01 08:00] VITALS: BP 93/59
--- NOTE | 2020-11-01 09:00 | NUR ---
Cm visited with stephanie while he was getting his lymphedema therapy . re-education on safe dcp, new diet puree and thicken liquids. more therapy. asked him to rate how safe he felt going home 1 being 100% safe and 10 being not safe at all, he reported 6. CM education on skilled list choice, [facility] 1st choice and [facility] 2nd choice. His friend clinton who could get his rent money turned in is in hospital with covid per stephanie. He said he could call landlord for apartment to let them know he is still in the hospital. Will cont following as needed for dc needs. Passed on information to [facility] about going skilled and will need new covid test.
--- NOTE | 2020-11-01 09:31 | NUR ---
Nutrition follow up: Pt with repeat video swallow yesterday, ST continues to recommend puree diet with honey thick liquids, no mixed consistencies, no straws. Pt education given by ST for puree foods and thickening liquids upon d/c. Intakes 100% at meals. Remains low nutrition risk.
--- NOTE | 2020-11-01 15:16 | NUR ---
FAXED SNF REFERRAL WITH NEGATIVE COVID RESULT (10/18/20) TO [facility]. NOTED PATIENT TO DISCHARGE TOMORROW, 11/02/20 WITH SPECIAL EMPHASIS ON SPEECH THERAPY, DIET EDUCATION AND LYMPHEDEMA THERAPY PER CM. [facility] P [phone]; FAX [phone]; Lashawn [phone] [facility] P [phone]; FAX [phone]
--- NOTE | 2020-11-01 18:00 | NUR ---
SHIFT SUMMARY: PT HAD RT YOUSSEF SCAB OPEN UP WHILE IN THE SHOWER WITH OT THIS AM AND AREA WAS CLEANED AND A DRY MEPILEX WAS PLACED ON THE AREA. PT UP TO CHAIR FOR ALL MEALS AND FOLLOWED HIS INTAKE PROTOCOL APPROPRIATELY. PT DRINKING HONEY LIQUIDS WELL TODAY AND URINE OUTPUT IMPROVED, COLOR IMPROVED. PT VERBALIZED THAT HE WAS GOING "ACROSS THE STREET FOR A COUPLE MORE WEEKS." AT DC TOMORROW. NOTED THAT PLAN IS TO DC TO SKILLED. REPORT GIVEN TO ONCOMING RN.
[2020-11-01 19:25] VITALS: BP 96/54
--- NOTE | 2020-11-02 00:25 | NUR ---
PT ALERT AND ORIENTED X 4. UP IN RECLINER ALL EVENING. TRANSFERRED TO BED AT HS WITH ASSIST X 1. PT TOOK HS MEDS CRUSHED IN HONEY THICK LIQUIDS WITHOUT DIFFICULTY. WRAPS INTACT TO BILAT LE'S. PT DENIES PAIN OR DISCOMFORT. C/O DIFFICULTY SLEEPING. MELATONIN GIVEN AT HS. BED ALARM ON FOR SAFETY. PT APPEARS TO BE SLEEPING AT THIS TIME.
[2020-11-02 08:00] VITALS: BP 95/60
[2020-11-02 08:34] LABS: ABSOLUTE NEUTROPHILS 3.4 thou/uL (1.4-8.2); BASOPHILS 0.6 % (0.0-2.0); EOSINOPHILS 1.5 % (0.0-3.0); HEMATOCRIT 38.4 % (42.0-52.0); HEMOGLOBIN 12.6 gm/dL (14.0-18.0); MCH 28.9 pg (26.0-34.0); MCHC 32.7 g/dL (28.0-37.0); MCV 88.3 fL (80.0-100.0); MONOCYTES 6.8 % (1.0-8.0); PLATELET COUNT 131 thou/uL (150-400); POLYS 56.1 % (36.0-66.0); RBC 4.35 mil/uL (4.50-6.00); RDW 17.5 % (10.5-14.5)
[2020-11-02 08:51] LABS: CREATININE 0.9 mg/dL (0.7-1.3); POTASSIUM 3.3 mmol/L (3.5-5.1)
--- NOTE | 2020-11-02 10:58 | NUR ---
Dc today to skilled [facility], [facility] will follow for [facility] needs after skilled rehab. thicken packets already delivered to [facility]. Shankar and stephanie agree with dcp. Cm notified bedside nurse. Send chart copy with stephanie to [facility]. bedside nurse to call report to [phone]. He can go via wheel chair van for [phone]
[2020-11-02] MEDS ORDERED: TYLENOL EXTRA500 MG PO (11:16)
[2020-11-02] MEDS ORDERED: PROTONIX 20 MG20 M1 PO (11:16)
[2020-11-02] MEDS ORDERED: MIRALAX17 GM PO (11:16)
[2020-11-02] MEDS ORDERED: DEMADEX20 MG PO (11:16)
[2020-11-02] MEDS ORDERED: POTASSIUM CHLO20 MEQ PO (11:16)
[2020-11-02] MEDS ORDERED: VITAMIN B-12500 MCG PO (11:16)
[2020-11-02] MEDS ORDERED: LIDOPATCH1 EACH TRANSDERM (11:16)
[2020-11-02] MEDS ORDERED: FOLIC ACID0.4 MG PO (11:16)
[2020-11-02] MEDS ORDERED: TRAZODONE HCL100 MG PO (11:16)
[2020-11-02] MEDS ORDERED: BACLOFEN 10MG T10 MG PO (11:20)
[2020-11-02] MEDS ORDERED: LANTUS100 UNIT/M SUBQ (11:20)
[2020-11-02] MEDS ORDERED: HUMALOG100 UNIT/1 SUBQ (11:20)
--- NOTE | 2020-11-02 13:06 | NUR ---
FAXED DISCHARGE ORDERS AND SUMMARY TO [facility]. WILL CONFIRM WITH [facility]/ [facility] FOR [facility] THAT THEY RECEIVED. [facility] ARRANGED WHEELCHAIR TRANSPORTATION FOR 2:30 PM. CHART COPY COMPLETED. NURSING UNIT INFORMED. [facility] P [phone]; FAX [phone]; M [phone] KAY[facility]
--- NOTE | 2020-11-02 13:11 | NUR ---
Patient care reumed at 0700, patient is alert and oriented x4, sitting on the chair in his room assessment completed, active bowel sound, lungs clear, he took his medication crushed with thicken, he is calm and cooperative, will be discharging to [facility] by 2pm
--- NOTE | 2020-11-02 14:48 | NUR ---
I have reviewed the documentation by Franny Springer from 10/31/20 to 11/02/20 and I concur with it. LINNEA ALMEIDA
== END 2020-11-02 14:47 | DRG 948 ==
PROVIDERS: Internal Medicine Cardiovascular Disease; Nurse Practitioner; Nurse Practitioner Adult Health; Nurse Practitioner Family; ADMIT Physical Medicine & Rehabilitation; ATTEND Physical Medicine & Rehabilitation
DX: R53.81 Other malaise (principal); E87.1 Hypo-osmolality and hyponatremia; I42.9 Cardiomyopathy, unspecified; J98.11 Atelectasis; I25.10 Atherosclerotic heart disease of native coronary artery without angina pectoris; Z95.1 Presence of aortocoronary bypass graft; Z95.5 Presence of coronary angioplasty implant and graft; I11.0 Hypertensive heart disease with heart failure; I50.9 Heart failure, unspecified; E78.5 Hyperlipidemia, unspecified; E87.6 Hypokalemia; I48.91 Unspecified atrial fibrillation; D64.9 Anemia, unspecified; E66.9 Obesity, unspecified; Z87.891 Personal history of nicotine dependence; K59.00 Constipation, unspecified; E11.42 Type 2 diabetes mellitus with diabetic polyneuropathy; Z79.01 Long term (current) use of anticoagulants; I71.4 Abdominal aortic aneurysm, without rupture; E86.0 Dehydration; F03.90 Unspecified dementia, unspecified severity, without behavioral disturbance, psychotic disturbance, mood disturbance, and anxiety; F41.9 Anxiety disorder, unspecified; K29.70 Gastritis, unspecified, without bleeding; K29.80 Duodenitis without bleeding; K22.2 Esophageal obstruction; G47.00 Insomnia, unspecified; R13.10 Dysphagia, unspecified; Z86.010 Personal history of colon polyps; N40.0 Benign prostatic hyperplasia without lower urinary tract symptoms; I08.1 Rheumatic disorders of both mitral and tricuspid valves; I27.20 Pulmonary hypertension, unspecified; M17.0 Bilateral primary osteoarthritis of knee; Z68.36 Body mass index [BMI] 36.0-36.9, adult
CPT/HCPCS: 10112; 62110; 62900; 70005

== ENCOUNTER 2020-11-30 14:14 | Emergency (ER) | payer OTHER ==
[~2020-11-30] VITALS: Ht 182.9 cm; Wt 122.5 kg
--- NOTE | ~2020-11-30 | EMS ---
[address] [address] EMS Patient Care Report Name: SHARON SCOTT Room #: DEP CELIO Christiansen#: [id number] Admission: 11/30/20 Attend Phys: Discharge: 11/30/20 Date of : 41 Report #: [id number] THIS REPORT FOR: //name// Report Transmitted: 12/03/2020 11:23 EMS Care Summary [place], [place]/[facility] Incident [id number] @ 11/30/2020 13:38 Incident Location [address] [place] [address] Patient SHARON SCOTT Male, 75 Years 1945 Patient Address [address] [place] [address] Patient History Congestive Heart Failure (CHF),Diabetes,Edema, Patient Allergies Penicillin allergy, Chief Complaint REDNESS AND SWELLING OF FEET Disposition Transported No Lights/[place] Dispatch Reason Sick Person Transported To [facility] Narrative ARRIVED TO FIND PT SITTING UPRIGHT IN A CHAIR. PT STATES HOME HEALTH FOUND AN INFECTION IN BOTH OF HIS FEET, BANDAGED BOTH FEET, AND HAD PT CALL FOR EMS. ALS ASSESSMENT VITALS OBTAINED. PT REPORTS NO DISCOMFORT IN FEET. PT STATES HE WAS RELEASED FROM REHAB 2 DAYS AGO AFTER RECEIVING TREATMENT FOR HIS FEET. PT MOVED TO COT, SECURED WITH STRAPS X2, LOADED WITHOUT INCIDENT. [address] [address] EMS Patient Care Report Name: SHARON SCOTT Room #: DEP [facility]#: [id number] Admission: 11/30/20 Attend Phys: Discharge: 11/30/20 Date of : 41 Report #: [id number] ENROUTE, PT PLACED ON O2 ARRIVED. PT TAKEN INSIDE ON COT TO ER 10. PT MOVED TO BED WITH 3 PERSON SHEET MOVE RAILS RAISED X2. REPORT GIVEN TO NURSE, PT CARE TRANSFERRED. Initial Vitals @13:56P: 37,CO: 2,SpO2: 95, @14:06P: 60,R: 16,BP: 100/65,Pain: 0/10,GCS: 15,CO: 1,SpO2: 94,Revised Trauma: 12, @13:48P: 66,R: 16,BP: 120/74,Pain: 0/10,GCS: 15,SpO2: 99,Revised Trauma: 12, Assessments @13:45MENTAL:Person Oriented,Place Oriented,Event Oriented,Time Oriented,SKIN:HEENT:Head/Face: No Abnormalities,Eyes: No Abnormalities,Neck/Airway: No Abnormalities,LUNG SOUNDS:General: No Abnormalities,Left Upper: No Abnormalities,Right Upper: No Abnormalities,Left Lower: No Abnormalities,Right Lower: No Abnormalities,ABDOMEN:General: No Abnormalities,Left Upper: No Abnormalities,Right Upper: No Abnormalities,Left Lower: No Abnormalities,Right Lower: No Abnormalities,PELVIS//GI:No Abnormalities,EXTREMITIES:Right Leg: Other,Right Leg: Edema,Left Leg: Other,Left Leg: Edema,Left Arm: No Abnormalities,Right Arm: No Abnormalities,PULSE:Radial: 2+ Normal,NEURO:No Abnormalities, Impression Skin infection Procedures @13:45ALS AssessmentResponse: UnchangedSucceeded@13:58Oxygen FlowRate: 3 Device: Nasal Cannula (NC) Response: ImprovedSucceeded Timeline 13:35,Call Received 13:35,Dispatch Notified 13:38,Dispatched 13:39,En Route 13:44,On Scene 13:45,At Patient 13:45,ALS Assessment,Response: UnchangedSucceeded, 13:48,BP: 120/74 M,PULSE: 66,RR: 16 R,SPO2: 99 Ox,ETCO2: ,BG: ,PAIN: 0,GCS: 15, 13:55,Depart Scene 13:56,BP: / M,PULSE: 37,RR: R,SPO2: 95 Ox,ETCO2: ,BG: ,PAIN: ,GCS: , 13:58,Oxygen FlowRate: 3 Device: Nasal Cannula (NC) Response: ImprovedSucceeded, 14:06,BP: 100/65 M,PULSE: 60,RR: 16 R,SPO2: 94 Ox,ETCO2: ,BG: ,PAIN: 0,GCS: 15, 14:09,At Destination 14:20,Call Closed [facility] [address] [place] [address] EMS Patient Care Report Name: SHARON SCOTT Lilian Room #: DEP Елена#: [id number] Admission: 11/30/20 Attend Phys: Discharge: 11/30/20 Date of : 41 Report #: [id number] Disclaimer v1.1 Copyright 202 [employer] This EMS Care Summary contains data elements from the applicable legal record (which may be displayed differently). It is designed to provide pertinent information for the following purposes: continuity of care, clinical quality, and state data reporting. The complete legal record is available to ED staff and administrators of the receiving hospital in [employer] Patient Tracker. All data is provided "as is."
[~2020-11-30 14:14] MED LIST changes: +BACLOFEN 10MG T10 MG PO; +DEMADEX20 MG PO; +FOLIC ACID0.4 MG PO; +HUMALOG100 UNIT/1 SUBQ; +LANTUS100 UNIT/M SUBQ; +LIDOPATCH1 EACH TRANSDERM; +MIRALAX17 GM PO; +POTASSIUM CHLO20 MEQ PO; +PROTONIX 20 MG20 M1 PO; +TRAZODONE HCL100 MG PO; +TYLENOL EXTRA500 MG PO; +VITAMIN B-12500 MCG PO
[2020-11-30 14:32] LABS: ABSOLUTE NEUTROPHILS 3.7 thou/uL (1.4-8.2); EOSINOPHILS 1.8 % (0.0-3.0); HEMATOCRIT 35.8 % (42.0-52.0); HEMOGLOBIN 11.5 gm/dL (14.0-18.0); LYMPHOCYTES 26.4 % (24.0-44.0); MCH 28.4 pg (26.0-34.0); MCHC 32.2 g/dL (28.0-37.0); MCV 88.1 fL (80.0-100.0); MONOCYTES 8.4 % (1.0-8.0); PLATELET COUNT 129 thou/uL (150-400); POLYS 62.4 % (36.0-66.0); RBC 4.06 mil/uL (4.50-6.00); RDW 18.6 % (10.5-14.5); WBC 5.9 thou/uL (4.0-11.0)
--- NOTE | 2020-11-30 14:55 | EKG ---
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1945 Requested By: Oswaldo Vaughn Order Number: [id number] MD: Virgil De Los Santos Measurements Intervals [place] Rate: 54 P: CT: QRS: 154 QRSD: 197 T: -33 QT: 508 QTc: 482 Interpretive Statements Atrial fibrillation RBBB and LPFB ST depr, consider ischemia, inferior leads Compared to ECG 08/30/2015 10:14:08 Atrial flutter no longer present Possible ischemia still present Electronically Signed On 11-30-2020 14:55:36 CDT by Virgil De Los Santos [email or web address] <ELECTRONICALLY SIGNED> By: Virgil De Los Santos MD, [facility] 11/30/20 1455 1418 1418 Virgil De Los Santos MD, FACC /EPI
[2020-11-30 15:06] LABS: ALBUMIN 2.5 g/dL (3.4-5.0); CALCIUM 8.7 mg/dL (8.5-10.1); CREATININE 0.9 mg/dL (0.7-1.3); TOTAL BILIRUBIN 1.4 mg/dL (0.2-1.0)
[2020-11-30 15:36] LABS: POTASSIUM 2.9 mmol/L (3.5-5.1); TOTAL PROTEIN 7.1 g/dL (6.4-8.2)
[2020-11-30 16:02] LABS: ANISOCYTOSIS 1+; PLATELET ESTIMATE NORMAL
[2020-11-30 20:11] VITALS: BP 119/68
== END 2020-11-30 20:15 | disposition home or self-care (01) ==
LOC: ER 14:14
PROVIDERS: Student in an Organized Health Care Education/Training Program
DX: E87.6 Hypokalemia (principal); R60.0 Localized edema; E11.9 Type 2 diabetes mellitus without complications; E78.5 Hyperlipidemia, unspecified; I50.9 Heart failure, unspecified; I48.91 Unspecified atrial fibrillation; E66.9 Obesity, unspecified; Z79.899 Other long term (current) drug therapy; Z88.0 Allergy status to penicillin